=== PATIENT | male | born 1935 | race Caucasian/White ===

== ENCOUNTER 2020-06-28 10:18 | Emergency (ER) | payer MEDICARE ==
[2020-06-28] MEDS ORDERED: Fentanyl 100 MCG/2 ML VIAL ONE (11:19)
== END 2020-06-28 15:28 | disposition home or self-care (01) ==
LOC: CSHERS 10:18
DX: Z46.6 Encounter for fitting and adjustment of urinary device (principal); F03.90 Unspecified dementia, unspecified severity, without behavioral disturbance, psychotic disturbance, mood disturbance, and anxiety; N18.9 Chronic kidney disease, unspecified; N40.0 Benign prostatic hyperplasia without lower urinary tract symptoms
CPT/HCPCS: 96374; J3010